=== PATIENT | female | born 1990 | race African-American/Black ===

== ENCOUNTER 2018-11-12 13:12 | Emergency (ER) | payer OTHER ==
[~2018-11-12] VITALS: Ht 157.5 cm; Wt 131.0 kg
[2018-11-12 13:16] VITALS: Ht 157.5 cm; Wt 131.0 kg
[2018-11-12] MEDS ORDERED: PROCHLORPERAZINE 10 MG INJ IV STA (14:39)
[2018-11-12] MEDS ORDERED: SOD CHLORIDE 0.9% 1,000 ML IV STA (14:39)
[2018-11-12] MEDS ORDERED: KETOROLAC 30 MG INJ IV STA (14:39)
[2018-11-12] MEDS ORDERED: DIPHENHYDRAMINE 50 MG INJ IV STA (14:39)
--- NOTE | 2018-11-12 15:01 | ERD ---
ER Documentation Chief Complaint Chief Complaint BLANCHARD SINCE SEIZURE LAST NIGHT HX OF SZ TAKES KEPPRA AND CLONAZEPAM HPI 28-year-old female with known history of seizure disorder compliant with medications that include Keppra. Patient states that she usually has breakthrough seizures approximate 1 time per week usually associated with warmer weather. She had a seizure yesterday evening. She generally has headaches associated with her seizures are usually right-sided. Today she presents with prolonged right-sided throbbing headache that is 7 out of 10, similar in loc ation and character to her prior headaches. No falls or injuries. She does not take any blood thinning medications. She denies any fevers chills rash or neck stiffness. ROS All systems reviewed and are negative except as per history of present illness. Medications Home Meds Active Scripts Ytjhqzpofs-Mmlqpdtwxejuc-Dndfuhww* (Fioricet*) 50-300-40 Mg Capsule, 1 CAP PO Q4H PRN for HEADACHE, #10 CAP Prov:MARYBETH DAVIS MD 11/12/18 Reported Medications Clonazepam* (Clonazepam*) 1 Mg Tablet, 1 MG PO TID, TAB 11/12/18 Levetiracetam* (Keppra*) 750 Mg Tablet, 750 MG PO BID, TAB 11/12/18 Allergies Allergies: Coded Allergies: No Known Allergy (Unverified , 11/12/18) PMhx/Soc History of Surgery: Yes (c section ) Anesthesia Reaction: No Hx Neurological Disorder: Yes (seizures ) Hx Respiratory Disorders: No Hx Cardiac Disorders: No Hx Psychiatric Problems: No Hx Miscellaneous Medical Probl: No Hx Alcohol Use: No Hx Substance Use: No Hx Tobacco Use: Yes Smoking Status: Current some day smoker FmHx Family History: No diabetes Physical Exam Vitals Vital Signs Date Temp Pulse Resp B/P (MAP) Pulse Ox O2 O2 Flow FiO2 Time Delivery Rate 11/12/18 98.1 87 18 133/77 99 Room Air 14:56 (95) 11/12/18 99.1 87 18 130/62 99 13:16 (84) Physical Exam General: Well developed, well nourished, no acute distress Head: Normocephalic, atraumatic. Eyes: Pupils equally reactive, EOM intact ENT: Moist mucous membranes Neck: Supple, no lymphadenopathy Respiratory: Lungs clear bilaterally, no distress Cardiovascular: RRR, no murmurs, rubs, or gallops Abdominal: Soft, non-tender, non-distended, no peritoneal signs : Deferred MSK: No edema, no unilateral swelling, 5/5 strength Neurologic: Alert and oriented, moving all extremities, normal speech, no focal weakness, no cerebellar signs Skin: No rash Psych: Normal mood Results 24 hrs Laboratory Tests Test 11/12/18 14:53 POC Beta HCG, Qualitative NEGATIVE Current Medications Medications Dose Sig/Ric Start Time Status Last (Trade) Ordered Route PRN Stop Time Admin Dose Reason Admin Sodium 1,000 ml @ Q1H STAT 11/12/18 11/12/18 Chloride 1,000 mls/hr IV 14:39 14:54 11/12/18 15:38 10 mg ONCE STAT 11/12/18 DC 11/12/18 Prochlorperaz IV 14:39 14:55 ine 11/12/18 14:40 (Compazine Inj) Ketorolac 30 mg ONCE STAT 11/12/18 DC 11/12/18 Tromethamine IV 14:39 14:55 (Toradol) 11/12/18 14:40 25 mg ONCE STAT 11/12/18 DC 11/12/18 Diphenhydrami IV 14:39 14:55 ne HCl 11/12/18 14:40 (Benadryl) Procedures/MDM MEDICAL DECISION MAKING: The patient's headache is unlikely related to serious etiology. The patient does not exhibit any clinical signs or symptoms, and has no risk factors to suggest headache etiology such as subarachnoid hemorrhage, acute vertebral or carotid dissection, intracranial mass, epidural, subdural hematoma, dural venous sinus thrombosis, giant cell arteritis, or pseudotumor cerebri. Headache very consistent with chronic headaches related to her seizures. She has frequent breakthrough seizures. I do not believe [facility] imaging is necessary given prolonged history of seizures, presentation very similar to episodes in the past. ER COURSE: * Patient given IV fluids Compazine and Benadryl, Toradol. * Seizure precautions initiated. * Symptoms improved CONSULTATION: [None] DISPOSITION PLAN: The patient does not have an identifiable emergent medical condition that warrants inpatient hospitalization at this time. The patient is deemed safe for discharge with outpatient follow-up. We discussed follow up with the patient's primary care doctor within 24 to 48 hours as needed. We also discussed return to the emergency room for worsening symptoms or worsening condition. Outpatient referral: [None required] Discharge Medications: Fioricet Departure Diagnosis: Primary Impression: Seizure disorder Additional Impression: Headache Headache type: unspecified Headache chronicity pattern: chronic headache Intractability: not intractable Qualified Codes: R51 - Headache Condition: Stable MARYBETH DAVIS MD Nov 12, 2018 15:01
[2018-11-12] MEDS ORDERED: LEVE750T70 PO (15:24)
[2018-11-12] MEDS ORDERED: CLON1TAB13 PO (15:29)
[2018-11-12] MEDS ORDERED: BUTA1CAP38 PO (15:34)
[2018-11-12 15:52] VITALS: BP 132/69; PULSE 78; RESP 18
== END 2018-11-12 15:55 | disposition home or self-care (01) ==
LOC: E/R 13:12
DX: G40.909 Epilepsy, unspecified, not intractable, without status epilepticus (principal); F17.210 Nicotine dependence, cigarettes, uncomplicated; R51 Headache
CPT/HCPCS: 81025; 96361; 96374; 96375; J0780; J1200; J1885; J7030; Z7502